=== PATIENT | male | born 1970 | race Caucasian/White ===

== ENCOUNTER 2019-09-05 12:16 | Emergency (ER) | payer MEDICAID ==
[~2019-09-05] VITALS: Ht 182.9 cm; Wt 89.0 kg
--- NOTE | 2019-09-05 13:16 | NUR ---
pt ambulated back to room with a smooth and steady gait, changed into gown, sitting on gurney, NAD, denies additional needs at this time, even and unlabored respirations, eyes open talking in full sentences. WCTM
[2019-09-05 14:42] VITALS: BP 129/85
--- NOTE | 2019-09-05 14:44 | NUR ---
pt resting in gurney, watching television, eyes open, NAD, even and unlabored respirations, NAD, call light iwthin reach, denies additional needs at this time. WCTM.
== END 2019-09-05 16:12 | disposition home or self-care (01) ==
LOC: ED 13:30
DX: J06.9 Acute upper respiratory infection, unspecified (principal); R04.0 Epistaxis; R06.02 Shortness of breath; Z87.891 Personal history of nicotine dependence
CPT/HCPCS: 71045; 99283